=== PATIENT | female | born 1940 | race Caucasian/White ===

== ENCOUNTER 2022-02-19 08:56 | Outpatient (CLI) | payer MEDICARE, SELFPAY ==
--- NOTE | 2022-02-19 09:06 | CDU_ITS ---
Reason For Study: carotid stenosis Rt. Velocities/BP Lt. Velocities/BP Prox CCA 96.9/17.3 cm/sec. Prox CCA 92.5/24.9 cm/sec. Mid CCA 72.8/12.4 cm/sec. Mid CCA 87.5/18.8 cm/sec. Dist CCA 69.5/15.7 cm/sec. Dist CCA 85.1/24.9 cm/sec. Prox ICA 148.5/42.6 cm/sec. Prox ICA 91.2/22.5 cm/sec. Mid ICA 115.6/29.8 cm/sec. Mid ICA 124.7/29.8 cm/sec. Dist ICA 92.5/26.2 cm/sec. Dist ICA 128.4/26.1 cm/sec. Rt. ICA/CCA = 2.0. Lt. ICA/CCA = 1.5. Prox ECA 108.3/13.3 cm/sec. Prox ECA 83.9/11.4 cm/sec. Rt. Vert. 51.9/12.6 cm/sec. Lt. Vert. 84.5/20.6 cm/sec. Right Extracranial There is intimal thickening but no significant atherosclerotic plaque noted in the right common carotid artery. There is heterogeneous, irregular atherosclerotic plaque noted in the right internal carotid artery. There is heterogeneous, irregular atherosclerotic plaque noted in the right external carotid artery. Antegrade flow is noted in the right vertebral artery. Left Extracranial There is intimal thickening but no significant atherosclerotic plaque noted in the left common carotid artery. There is heterogeneous, irregular atherosclerotic plaque noted in the left internal carotid artery. There is heterogeneous, irregular atherosclerotic plaque noted in the left external carotid artery. Antegrade flow is noted in the left vertebral artery. Procedure Carotid Duplex 23098. This is a Carotid Duplex examination using B-mode, color flow and specral Doppler. The exam was diagnostic. Exam performed in department. VL/Carotid Duplex Ultrasound Interpretation Summary Mild (<50%) stenosis right extracranial internal carotid. Mild (<50%) stenosis left extracranial internal carotid. Flow within the vertebral arteries is antegrade bilaterally. Ordering Physician: Jesse Peña Performed By: Steve Gonzalez RVT
== END 2022-02-19 23:59 | disposition home or self-care (01) ==
PROVIDERS: PCP Physician Assistant; Referring Provider Surgery Vascular Surgery; Visit Provider Surgery Vascular Surgery
DX: I65.23 Occlusion and stenosis of bilateral carotid arteries (principal)
CPT/HCPCS: 93880